=== PATIENT | female | born 1995 | race Caucasian/White ===

== ENCOUNTER 2023-04-17 13:47 | Inpatient (IN) ==
[2023-04-17] MEDS ORDERED: Prochlorperazine 5 mg/ml 2 ml VIAL (10 mg) IV PRN (14:18)
[2023-04-17] MEDS ORDERED: Lidocaine 1% VIAL 10 MG/ML 30 ML VIAL INJ PRN (14:18)
[2023-04-17] MEDS: Lactated Ringers 1000 ml BAG 1,000 ML IV ONE (15:37)
[2023-04-17 15:51] LABS: ABS Eosinophils 0.1 10^3/uL (0.0-0.5); ABS Lymphocytes 1.5 10^3/uL (1.0-4.8); ABS Monocytes 0.7 10^3/uL (0.0-0.9); ABS Neutrophils 10.6 10^3/uL (1.5-7.6); ABS Nucleated RBC 0.07 10^3/ul; Eosinophil % 0.6 %; Hematocrit 31.4 % (35-45); Hemoglobin 11.1 g/dL (11.5-14.3); Lymphocyte % 11.8 %; Mean Corpuscular Hgb Conc 35.3 g/dL (31-36); Mean Corpuscular Volume 84.8 fL (80-97); Mean Platelet Volume 9.7 fL (7.5-11.2); Nucleated Red Blood Cells % 0.6 %/100WBC (0.0-0.8); Platelet Count 176 10^3/uL (150-450); Red Cell Distribution Width 16.2 % (12-17); White Blood Count 12.8 10^3/uL (3.8-11.8)
[2023-04-17 15:58] LABS: Urine Benzodiazepine Screen None Detected (None Detect); Urine Cannabinoids Screen None Detected (None Detect); Urine Opiates Screen None Detected (None Detect)
[2023-04-17] MEDS: Buffered Lidocaine 1% SYRIN 1 ml INTRADERM ONE (16:17)
[2023-04-17] MEDS: Oxytocin in LR 20,000 MILLI.UNIT/1,000 ML BAG IV SCH (16:36)
[2023-04-18] MEDS: Ondansetron 4 mg VIAL 2 MG/ML 2 ml VIAL IV PRN (08:02)
[2023-04-18] MEDS: Famotidine IV 10 MG/ML 2 ml VIAL (20 mg) IV SLOW PU ONE (08:02)
[2023-04-18] MEDS: Lactated Ringers 1000 ml BAG 1,000 ML IV SCH (09:23)
[2023-04-19] MEDS: Calcium Carb (TUMS) 500 mg CHEW TAB PO ONE (01:33)
[2023-04-19] MEDS: miSOPROStol 100 mcg TAB PO ONE (01:34)
[2023-04-19] MEDS ORDERED: Glycerin ADULT 2.4 gm SUPP PR PRN (11:45)
[2023-04-19] MEDS ORDERED: Lactated Ringers 1000 ml BAG 1,000 ML IV SCH (12:00)
[2023-04-19] MEDS: Witch Hazel PAD JAR TOPICAL PRN (13:45)
[2023-04-19] MEDS: Dibucaine 1% OINT 28.35 GM TUBE PR PRN (13:45)
[2023-04-19] MEDS: RHO D Immune Globulin (HUMAN) 300 MCG = 1,500 I.U. INJ IM PRN (16:06)
[2023-04-19] MEDS: Oxytocin in LR 20,000 MILLI.UNIT/1,000 ML BAG IV SCH (19:44)
[2023-04-20 06:33] LABS: ABS Eosinophils 0.1 10^3/uL (0.0-0.5); ABS Lymphocytes 1.7 10^3/uL (1.0-4.8); ABS Monocytes 0.8 10^3/uL (0.0-0.9); ABS Neutrophils 9.9 10^3/uL (1.5-7.6); ABS Nucleated RBC 0.01 10^3/ul; Eosinophil % 0.6 %; Hematocrit 24.2 % (35-45); Hemoglobin 8.1 g/dL (11.5-14.3); Lymphocyte % 13.6 %; Mean Corpuscular Hemoglobin 28.6 pg (27-33); Mean Corpuscular Hgb Conc 33.4 g/dL (31-36); Mean Corpuscular Volume 85.6 fL (80-97); Mean Platelet Volume 9.3 fL (7.5-11.2); Nucleated Red Blood Cells % 0.1 %/100WBC (0.0-0.8); Platelet Count 133 10^3/uL (150-450); Red Blood Count 2.83 10^6/uL (3.63-4.92); Red Cell Distribution Width 16.2 % (12-17); White Blood Count 12.4 10^3/uL (3.8-11.8)
[2023-04-20 09:01] VITALS: BP 113/65
== END 2023-04-20 16:05 | disposition home or self-care (01) | DRG 560 ==
LOC: MCHOBOUT 13:47 → MCHOB 14:17
PROVIDERS: ADMIT Advanced Practice Midwife; ATTEND Midwife